=== PATIENT | male | born 1945 | race Caucasian/White ===

== ENCOUNTER 2020-03-10 08:17 | Inpatient (IN) | payer OTHER, MEDICAID, SELFPAY ==
[2020-03-10] VITALS (13 sets, daily range): BP systolic 93–131; BP diastolic 63–90; PULSE 66–106; RESP 16–26; TEMP 36.2–36.8; O2SAT 97–100; BMI 24.3
--- NOTE | ~2020-03-10 | CT_ITS ---
EXAMINATION: CT brain wo con DATE: 03/10/2020 09:12 INDICATION: Altered mental status. TECHNIQUE: Computed tomography (CT) of the head was performed without intravenous contrast. The mA wa s adjusted according to patient size. Iterative reconstruction technique was employed. The dose-lengt h product was 681.00 mGy-cm. COMPARISON: None FINDINGS: There are old infarcts in the cerebellum bilaterally. There is an old infarct involving rig ht temporal, parietal, and occipital lobes. There is an old infarct in posterior right frontal lobe. There are scattered areas of low attenuation in the cerebral white matter. There is cortical hypodens ity involving the left temporal and parietal lobes and left insula. There is an old infarct in the ri ght caudate nucleus. There is no intracranial hemorrhage or abnormal mass lesion. The ventricles are normal in size. There is mild mucosal thickening in the paranasal sinuses. There is an old healed rig ht zygomaticomaxillary complex fracture deformity. There is a trace right mastoid effusion. IMPRESSION: 1. Cortical hypodensity involving the left temporal and parietal lobes and left insula suspicious for acute infarct. 2. Old infarcts involving the cerebellum, right frontal, temporal, parietal, and occipital lobes, and right caudate nucleus. 3. Extensive nonspecific cerebral white matter disease, which likely represents chronic small vessel ischemic disease. Reviewed, dictated and finalized at location A. HNUT ICER IMPRESSION: 1. Cortical hypodensity involving the left temporal and parietal lobes and left insula suspicious for acute infarct. 2. Old infarcts involving the cerebellum, right frontal, temporal, parietal, an d occipital lobes, and right caudate nucleus. 3. Extensive nonspecific cerebral white matter disease, which likely represents chronic small vessel ischemic disease.
--- NOTE | ~2020-03-10 | XR_ITS ---
EXAMINATION: XR chest 1V DATE: 03/10/2020 09:16 INDICATION: Transient alteration of awareness. TECHNIQUE: A single frontal view of the chest was obtained. COMPARISON: Chest single view 04/15/2018 FINDINGS: There is volume loss in right hemithorax. There are airspace opacities in all right lung zo adam with a basilar predominance. There are mild airspace opacities at left lung base. There is a smal l right pleural effusion. No pneumothorax. The heart size is normal. There is a left chest wall pacer with leads in the right atrium and right ventricle. IMPRESSION: 1. Airspace opacities in right lung and at left lung base, consistent with atelectasis and scarring v ersus pneumonia. 2. Small right pleural effusion. Reviewed, dictated and finalized at location A. EILLANCE SUPERVISOR IMPRESSION: 1. Airspace opacities in right lung and at left lung base, consistent with atel ectasis and scarring versus pneumonia. 2. Small right pleural effusion.
--- NOTE | ~2020-03-10 | US_ITS ---
EXAMINATION: US carotid duplex BI DATE: 03/11/2020 09:49 INDICATION: Stroke with encephalopathy. Cerebral atherosclerosis. TECHNIQUE: Grayscale, color Doppler, and pulsed Doppler images of the cervical carotid arteries were obtained. The degree of vessel stenosis is placed in one of the following categories: normal, <50%, 5 0-69%, >=70% but less than near-occlusion, near-occlusion, or total occlusion. Note that percent sten osis relative to normal distal artery lumen diameter is indirectly measured from velocity measurement s as described by Joby, et al. Radiology 2003; 229:340-346. COMPARISON: None. FINDINGS: RIGHT: The right common carotid artery (CCA) peak systolic velocity (PSV) is 43 cm/s. The right internal car otid artery (ICA) PSV is 66 cm/s. The right ICA end-diastolic velocity (EDV) is 11 cm/s. The right IC A/CCA PSV ratio is 1.5. Grayscale and color Doppler images yield an estimate of <50% diameter reducti on from plaque in the ICA. The external carotid artery (ECA) PSV is 775 cm/s. There is antegrade flow in the right vertebral artery. LEFT: The left CCA PSV is 67 cm/s. The left ICA PSV is 67 cm/s. The left ICA EDV is 18 cm/s. The left ICA/C CA PSV ratio is 1.0. Grayscale and color Doppler images yield an estimate of <50% diameter reduction from plaque in the ICA. The ECA PSV is 58 cm/s. There is antegrade flow in the left vertebral artery. IMPRESSION: 1. <50% stenosis in the right internal carotid artery. 2. <50% stenosis in the left internal carotid artery. Reviewed, dictated and finalized at location A. S FITTER
--- NOTE | 2020-03-10 08:29 | ECG_ITS ---
Measurements Intervals [place] Rate: 88 P: NH: 0 QRS: 35 QRSD: 114 T: 0 QT: 337 QTc: 408 Interpretive Statements ATRIAL FIBRILLATION VENTRICULAR PREMATURE COMPLEX LOW QRS VOLTAGE IN LIMB LEADS INTRAVENTRICULAR CONDUCTION DELAY DELAYED PRECORDIAL R/S TRANSITION BORDERLINE ST-T WAVE ABNORMALITY- INF/LAT LEADS ABNORMAL ECG Electronically Signed On 03-10-2020 8:35:00 FRANCHISE CONSULTANT by Portillo Campbell D.O.
[2020-03-10 08:30] LABS: Glucose Point of Care 81 (65-105)
--- NOTE | 2020-03-10 08:51 | ED.NEUROSD ---
HPI - Neuro Symptoms/Deficit General Chief Complaint: Neuro Symptoms/Deficit Stated Complaint: Neuro symptoms Time Seen by Provider: 03/10/20 08:18 Source: EMS Mode of arrival: EMS Limitations: altered mental status History of Present Illness HPI Narrative: This patient is a 74 year old male with history of TIA, CAD, CHF, and dementia who presents for [facility] for evaluation of a possible CVa. Nursing staff reports they came onto shift it was noticed that patient has right side weakness and right facial droop. [facility] patient is normally able to talk but he is only able to moan today. They are unsure of his last known normal. EMS reports patient has left side deficit from a previous CVA. He was found around 7 am. Blood sugar was 103. Onset (ago): unknown Related Data Home Medications Medication Instructions Recorded Confirmed acetaminophen 650 mg PO Q4H PRN 03/10/20 03/10/20 aripiprazole 2 mg PO DAILY 03/10/20 03/10/20 carvedilol 3.125 mg PO BID 03/10/20 03/10/20 digoxin 125 mcg PO DAILY 03/10/20 03/10/20 docusate sodium 100 mg PO DAILY PRN 03/10/20 03/10/20 donepezil 10 mg PO HS 03/10/20 03/10/20 haloperidol [Haldol] 1 mg PO PRN PRN 03/10/20 03/10/20 haloperidol lactate [Haldol] 1 mg IM ONCE PRN 03/10/20 03/10/20 losartan 50 mg PO DAILY 03/10/20 03/10/20 memantine 10 mg PO BID 03/10/20 03/10/20 ondansetron HCl [Zofran] 4 mg PO Q6H PRN 03/10/20 03/10/20 pantoprazole 20 mg PO QAM 03/10/20 03/10/20 polysaccharide iron complex 150 mg PO DAILY 03/10/20 03/10/20 [Poly-Iron] Allergies Allergy/AdvReac Type Severity Reaction Status Date / Time acetaminophen [From Tylenol] Allergy Unknown Verified 03/10/20 10:36 cucumber Allergy Unknown Verified 03/10/20 10:36 Penicillins Allergy Unknown Verified 03/10/20 10:36 pineapple Allergy Unknown Verified 03/10/20 10:36 Review of Systems Review of Systems: ROS unobtainable: Yes unobtainable due to medical condition [facility] Past Medical History Medical History (Updated 03/10/20 @ 19:02 by Agueda Jean MD) Atrial fibrillation CAD (coronary artery disease) CHF (congestive heart failure) Systolic Dementia GERD (gastroesophageal reflux disease) Hypertension Mitral valve insufficiency TIA (transient ischemic attack) Surgical History Surgical History History of cardiac defibrillator placement Family History Family History (Updated 03/10/20 @ 17:22 by Charley Skelton NP) Unknown Unknown family medical history Social History Social History (Updated 03/10/20 @ 17:29 by Charley Skelton NP) Social History: He is from [place] [facility]. No emergency contacts listed and the patient is a DNR. His marital status is unknown. Smoking and drinking status unknown. Smoking status: Unknown if ever smoked Additional smoking assessment comments: Pt not verbal, lives at [facility]. Alcohol intake: former Substance use: never Gender identity (if verbalized by the patient): Male Spiritual care concerns: Yes ([facility]) Exam Const: General: ill appearing Limitations: altered mental status Other: patient moaning HENMT: Head: normocephalic and atraumatic Face and sinus: Flattened naso-labial fold present (right) Mouth: Yes dry mucous membranes Eyes: Pupils: Equal, round and reactive pupils present Other: gaze to left Resp: Effort & Inspection: normal respiratory effort and no retractions Auscultation: clear to auscultation bilaterally Cardio: Rate: regular rate Rhythm: regular rhythm Heart sounds: no murmurs GI: GI Palp: Yes Soft to palpation, No Tenderness to palpation present (GI) and No Guarding due to palpation present (GI) Auscultation: normal bowel sounds Neuro: Speech: Abnormal speech present complete aphasia (patient just moaning) Motor exam (neuro): Other motor observations present (unable to follow commands. appears to have
[2020-03-10 09:00] LABS: Alveolar/Arterial O2 Gradient 15.6 mmHg; Base Excess ABG -2.4 mEq/l (+/-2.0); Carboxyhemoglobin 0.3 % THb (0-2.0); Fractional Inspired Oxygen 21 %; HCO3 ABG 20.8 mEq/l (22.0-26.0); Methemoglobin ABG 0.2 %THb (0-1.5); Oxygen Content ABG 13.9 %vol (16.0-22.0); Oxygen Saturation ABG 97.8 % (95.0-100.0); Oxyhemoglobin 96.7 % THb (90.0-100.0); PCO2 ABG 30.2 mmHg (35.0-45.0); PO2 FiO2 Ratio Arterial Blood 4.67 %; Reduced Hemoglobin 2.8 %THb (0-5.0); Total Hemoglobin 10.1 g/dL (12.0-18.0); pH ABG 7.456 (7.350-7.450)
[2020-03-10 09:01] LABS: Modified Allen's Test Pass; Site Drawn RIGHT BRACHIAL
[2020-03-10 09:02] LABS: Device ROOM AIR
[2020-03-10 09:12] LABS: Basophils Percent Auto 0.5 % (0.2-1.2); Eosinophils Absolute Auto 0.3 K/mm3 (0-0.3); Eosinophils Percent Auto 3.1 % (0-4.4); Hematocrit 31.6 % (42.0-52.0); Hemoglobin 9.7 g/dL (14.0-18.0); Immature Granulocyte Absolute 0.04 K/mm3 (0.00-0.031); Immature Granulocyte Percent A 0.5 % (0-0.5); Lymphocytes Absolute Auto 0.87 K/mm3 (0.9-3.2); Lymphocytes Percent Auto 10.2 % (18.3-44.2); Mean Corpuscular HGB Conc 30.7 g/dl (32-36); Mean Corpuscular Hemoglobin 27.4 pg (26-34); Mean Corpuscular Volume 89.3 fl (80-100); Mean Platelet Volume 9.5 fl (7.4-10.4); Monocytes Absolute Auto 0.6 K/mm3 (0.1-0.6); Monocytes Percent Auto 7.1 % (2.6-8.5); Neutrophils Absolute Auto 6.7 K/mm3 (1.3-6.7); Neutrophils Percent Auto 78.6 % (45.5-73.1); Platelet Count Result 297 k/mm3 (150-375); Red Blood Count 3.54 M/mm3 (4.6-6.20); Red Cell Distribution Width 14.3 % (11.5-14.5); White Blood Count 8.5 K/mm3 (4.5-10.0)
[2020-03-10 09:21] LABS: INR 1.2; Prothrombin Time 15.5 Seconds (11.1-14.7)
[2020-03-10 09:22] LABS: Partial Thromboplastin Time 30.4 SECONDS (22.3-36.8)
[2020-03-10 09:26] LABS: Alanine Aminotransferase 10 U/L (4-50); Albumin Level 2.8 g/dL (3.5-5.1); Alkaline Phosphatase 105 U/L (38-126); Anion Gap 2 mmol/L (8-16); Aspartate Amino Transferase 18 U/L (17-59); Bilirubin,Total 0.4 mg/dL (0.2-1.3); Blood Urea Nitrogen 33 mg/dL (9-20); Calcium 8.2 mg/dL (8.4-10.2); Carbon Dioxide 27 mmol/L (22-30); Chloride 108 mmol/L (98-107); Estimated CRCL calculation 26 ml/min; Estimated Glomerular Filt Rate 27; Glucose 86 mg/dL (75-110); Potassium 4.5 mmol/L (3.4-5.0); Sodium 137 mmol/L (137-145)
[2020-03-10 09:44] LABS: Troponin I 0.052 ng/mL (0.000-0.034)
[2020-03-10 09:54] LABS: Add Urine Microscopic? YES; Appearance Urine Cloudy (Clear); Bacteria Urine Trace /hpf; Bilirubin Urine Negative (Negative); Color Urine Yellow (Yellow); Glucose Urine UA 1+ mg/dL (Negative); Ketones Urine Negative (Negative); Leukocyte Esterase Ur 3+ LEU/UL (Negative); Nitrate Urine Negative (Negative); Protein Urine 3+ mg/dL (Negative); Specific Grav Ur 1.014 (1.001-1.035); Squamous Epithelial Cell Urine Rare /hpf (Few); Urobilinogen Urine Negative mg/dL (<2.0); WBC Clumps Urine Present /HPF; WBC Urine >75 /hpf
[2020-03-10 09:55] LABS: Blood Urine Negative (Negative)
--- NOTE | 2020-03-10 10:21 | PC.NURSE ---
Called lab, Kiah, added on Digoxin [id number]
[2020-03-10 10:43] LABS: Digoxin 0.7 ng/mL (0.8-2.0)
--- NOTE | 2020-03-10 13:24 | ADMGEN ---
This patient, Haseeb Hagan, was admitted to Medical Room 343-01. Patient/family oriented to hospital policies and general routines including ID bracelet, bed and alarms, visiting hours, pain management, procedures, bathroom and other care routines, personal items, smoking policy, room service/diet, and visiting hours. Information on how to activate the Rapid Response Team has been discussed. Patient/Family are encouraged to report perceived risks to care and to ask questions if they do not understand what they are told or what they should do.
[2020-03-10] MEDS: FUROSEMIDE INJ 40 MG/4 ML VIAL 20 MG IV PUSH (16:31)
--- NOTE | 2020-03-10 17:00 | PM.IMHP ---
H&P: HPI History of Present Illness Date/Time: 03/10/20 17:00 Chief Complaint: Confusion Narrative: Haseeb Hagan is a 74 year old male who resides at [facility]. The patient has a history of dementia. Is reported that the patient just mimics what other people say but does not usually have a conversation. The patient was not mimicking others and does have a history of having systolic congestive heart failure the past. The patient has right-sided weakness and has a deviated gaze to the left upper area. [facility] that the patient right-sided weakness and right facial droop. The notices Friday came to the shift this morning. The patient has a left-sided deficit from previous CVA. The patient was found at 7:00 a.m. and his blood sugar was 103. Time of onset was unknown. His H&H is noted be 9.7 and 31.6. BUN 33 creatinine 2.4. His urine is positive for UTI. The patient has kidney disease unsure if it is acute or chronic. The patient was renally dose with Levaquin since he has a penicillin allergy. When I evaluated the patient his right arm was flaccid in his left arm was weak. The patient sounds congested and neb treatment suctioning and Lasix was ordered. The patient is NPO at this time for possibility of aspiration. He will need a swallow study. Patient is being admitted to inpatient on the date of service of 03/10/2020. The patient is a DNR. Review of Systems Review of Systems: All systems reviewed & are unremarkable except as noted in HPI and below Constitutional: Constitutional: Reports as per HPI and Reports no additional constitutional complaints Eyes: Eyes: Reports as per HPI and Reports no additional eye complaints ENT: Reports system reviewed and no additional complaints, except as documented and Reports Normal hearing present Cardiovascular: Cardiovascular: Reports no additional cardiovascular complaints Respiratory: Respiratory: Reports no additional respiratory complaints and Reports no additional respiratory complaints Gastrointestinal: Gastrointestinal: Reports as per HPI and Reports no additional gastrointestinal complaints Musculoskeletal: Musculoskeletal: Reports no additional musculoskeletal complaints Integumentary/Breasts: Skin/Breast: Reports system reviewed and no additional complaints, except as docu and Reports as per HPI Neurologic: Reports system reviewed and no additional complaints, except as documented, Reports as per HPI and Reports Normal hearing present Psychiatric: Psychiatric: Reports no additional psychiatric complaints and Reports as per HPI Endocrine: Endocrine: Reports no additional endocrine complaints Hematologic/Lymphatic: Hematologic/Lymphatic: Reports no additional hematologic/lymphatic complaints Allergic/Immunologic: Allergic/Immunologic: Reports no additional allergic/immunologic complaints [facility] Past Medical History Medical History (Updated 03/10/20 @ 17:44 by Charley Skelton NP) Atrial fibrillation CAD (coronary artery disease) CHF (congestive heart failure) Systolic Dementia GERD (gastroesophageal reflux disease) Hypertension Mitral valve insufficiency TIA (transient ischemic attack) Surgical History Surgical History History of cardiac defibrillator placement Family History Family History (Updated 03/10/20 @ 17:22 by Charley Skelton NP) Unknown Unknown family medical history Social History Social History (Updated 03/10/20 @ 17:29 by Charley Skelton NP) Social History: He is from [place] [facility]. No emergency contacts listed and the patient is a DNR. His marital status is unknown. Smoking and drinking status unknown. Smoking status: Unknown if ever smoked Additional smoking assessment comments: Pt not verbal, [facility]. Alcohol intake: former Substance use: never Gender identity (if verbalized by the patient): Male Spi
[2020-03-10] MEDS: SCOPOLAMINE 1.5 MG PATCH TRANSDERM (17:29)
[2020-03-10 18:09] LABS: Troponin I 0.055 ng/mL (0.000-0.034)
[2020-03-11] VITALS (11 sets, daily range): BP systolic 115–118; BP diastolic 72–77; PULSE 75–101; RESP 16–20; TEMP 36.5–36.6; O2SAT 95–98
--- NOTE | 2020-03-11 | ECHO_ITS ---
Patient Info Name: Haseeb Hagan Age: 74 years : 1945 Gender: Male Ht: 70 in Wt: 169 lbs BSA: 1.95 m2 HR: 94 bpm BP: 118 / 72 mmHg Heart Rhythm: Atrial Fibrillation Technical Quality: Good Exam Date: 03/11/2020 7:24 AM Exam Location: [facility] Pulmonary Exam Room: [facility] Patient Status: Inpatient Admit Date: 03/10/2020 Staff Ordering Physician: Sharon Cruz PA-C Project Manager/Design Manager: Stefania Lyle RDCS Attending Provider: Sharon Cruz PA-C Exam Type: CA echo doppler color flow Study Info Indications - HX/O afib cad chf AICD TIA Complete two-dimensional, color flow and Doppler transthoracic echocardiogram is performed. Summary 1. Complete two-dimensional, color flow and Doppler transthoracic echocardiogram is performed. 2. Left ventricular chamber dimension is moderately enlarged. 3. Left ventricular systolic function is severely reduced, estimated at 25-30%. 4. Right ventricular chamber dimension is normal. 5. Right ventricular systolic function is normal. 6. Linear artifact in right ventricle suggestive of catheter(s), pacemaker lead(s), or ICD lead(s). 7. Right atrial chamber dimension is severely enlarged. 8. Left atrial chamber dimension is severely enlarged. 9. Moderate pulmonary hypertension, estimated pulmonary arterial systolic pressure is 56 mmHg. 10. There is moderate to severe tricuspid valve regurgitation. 11. There is moderate to severe mitral valve regurgitation. Left Ventricle Left ventricular chamber dimension is moderately enlarged. Left ventricular systolic function is severely reduced, estimated at 25-30%. There is no increased left ventricular wall thickness. The left ventricular diastolic function is indeterminate. Right Ventricle Right ventricular chamber dimension is normal. Right ventricular systolic function is normal. Linear artifact in right ventricle suggestive of catheter(s), pacemaker lead(s), or ICD lead(s). Left Atria Left atrial chamber dimension is severely enlarged. Right Atria Right atrial chamber dimension is severely enlarged. Linear artifact in the right atrium suggestive of catheter(s), pacemaker lead(s), or ICD lead(s). Aortic Valve The aortic valve is not well visualized. There is no aortic valve stenosis. There is no aortic valve regurgitation. Pulmonic Valve The pulmonic valve is not well visualized. Mitral Valve The mitral valve has thickened leaflets. There is moderate to severe mitral valve regurgitation. The mitral valve annulus is severely calcified. Tricuspid Valve The tricuspid valve leaflets are normal. There is moderate to severe tricuspid valve regurgitation. Moderate pulmonary hypertension, estimated pulmonary arterial systolic pressure is 56 mmHg. Pericardium/Pleural The pericardium appears normal. There is trivial pericardial effusion. Aorta The aortic root size at the sinus of Valsalva is normal. There is mild-moderate aortic atherosclerosis. Left Ventricular Outflow Tract Name Value Normal LVOT 2D LVOT Diameter 2.1 cm LVOT Doppler LVOT Peak Gradient 4 mmHg LV
[2020-03-11 05:56] LABS: Basophils Percent Auto 0.3 % (0.2-1.2); Eosinophils Percent Auto 0.3 % (0-4.4); Hematocrit 34.6 % (42.0-52.0); Hemoglobin 10.5 g/dL (14.0-18.0); Immature Granulocyte Absolute 0.05 K/mm3 (0.00-0.031); Immature Granulocyte Percent A 0.4 % (0-0.5); Lymphocytes Absolute Auto 0.74 K/mm3 (0.9-3.2); Lymphocytes Percent Auto 5.6 % (18.3-44.2); Mean Corpuscular HGB Conc 30.3 g/dl (32-36); Mean Corpuscular Hemoglobin 27.2 pg (26-34); Mean Corpuscular Volume 89.6 fl (80-100); Mean Platelet Volume 9.7 fl (7.4-10.4); Monocytes Absolute Auto 0.8 K/mm3 (0.1-0.6); Monocytes Percent Auto 6.3 % (2.6-8.5); Neutrophils Absolute Auto 11.6 K/mm3 (1.3-6.7); Neutrophils Percent Auto 87.1 % (45.5-73.1); Platelet Count Result 305 k/mm3 (150-375); Red Blood Count 3.86 M/mm3 (4.6-6.20); Red Cell Distribution Width 14.5 % (11.5-14.5); White Blood Count 13.3 K/mm3 (4.5-10.0)
[2020-03-11 06:06] LABS: Lactic Acid Reflex 1.7 mmol/L (0.7-2.1)
[2020-03-11 06:12] LABS: Alanine Aminotransferase 10 U/L (4-50); Albumin Level 3.3 g/dL (3.5-5.1); Alkaline Phosphatase 123 U/L (38-126); Anion Gap 7 mmol/L (8-16); Aspartate Amino Transferase 21 U/L (17-59); Bilirubin,Total 0.5 mg/dL (0.2-1.3); Blood Urea Nitrogen 32 mg/dL (9-20); CRP 6.1 mg/dL (<1.0); Carbon Dioxide 23 mmol/L (22-30); Chloride 108 mmol/L (98-107); Estimated CRCL calculation 27 ml/min; Estimated Glomerular Filt Rate 28; Glucose 81 mg/dL (75-110); Lactate Dehydrogenase 788 U/L (313-618); Potassium 4.9 mmol/L (3.4-5.0); Sodium 138 mmol/L (137-145)
[2020-03-11] MEDS: ASPIRIN 600 MG SUPPOSITORY RECTAL (08:13)
[2020-03-11] MEDS: DIGOXIN INJ 250 MCG/ML 2 ML AMP (*BKC) 125 MCG IV PUSH (08:13)
--- NOTE | 2020-03-11 09:30 | PM.CNCAR ---
Assessment and Plan Assessment and plan (1) Atrial fibrillation: Code(s): I48.91 - Unspecified atrial fibrillation Status: Chronic Assessment and Plan: Chronicity unknown. Need to determine ICD window dresser and interrogate device which will clarify this issue. However, patient's candidacy for systemic anticoagulation questionable as he was not on aspirin or anticoagulation previously with documentation of prior bilateral strokes on CT head. Need to clarify this information. Furthermore, need specific recommendation from Neurology with regards to timing for initiation of anticoagulation if deemed appropriate. Otherwise, patient very high risk for recurrent stroke and concern for high risk for bleeding complications but difficult to clarify given current mental status and available records. Need to obtain records from patient's primary counselor/art therapist as an outpatient. Patient is at high risk for complications including falls, bleeding especially recurrent stroke. Check digoxin level. Given patient's renal failure, advanced age dose adjustment or discontinuation may be warranted. Recommendations to follow in this regard. (2) CVA (cerebral vascular accident): Code(s): I63.9 - Cerebral infarction, unspecified Status: Acute Assessment and Plan: Neurology consultation advised. Evidence of acute stroke as well as multiple old cerebral infarctions. Hospice or comfort measures quite appropriate in this unfortunate and very complicated and debilitated gentleman. (3) Elevated troponin: Code(s): R77.8 - Other specified abnormalities of plasma proteins Status: Acute Assessment and Plan: Flat, not associated with ischemic EKG changes or anginal symptoms. This appears consistent with a non ID troponin elevations secondary to renal failure and possibly atrial fibrillation with reported history of cardiomyopathy. 2D echo pending. Will review with recommendation to follow. At a minimum, I would recommend aspirin given stroke and reported history, however, systemic anticoagulation if deemed appropriate would be best management in which case aspirin may be after the 1st month. (4) Cardiomyopathy: Code(s): I42.9 - Cardiomyopathy, unspecified Status: Acute Assessment and Plan: Echo pending. Will review when available. Patient does not appear to be in decompensated heart failure at this time. Continue carvedilol, ARB. He did not appear to be on diuretic therapy as an outpatient per available medication list. Appropriate med management for support. (5) ICD (implantable cardioverter-defibrillator) in place: Code(s): Z95.810 - Presence of automatic (implantable) cardiac defibrillator Status: Acute Assessment and Plan: As above, interrogate device window dresser unknown. Need to review prior records for clarification. 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 (7) Hypertension: Code(s): I10 - Essential (primary) hypertension Status: Chronic Assessment and Plan: Avoid hypotension particularly in setting acute CVA. Would favor permissive hypertension. (8) UTI (urinary tract infection): Code(s): N39.0 - Urinary tract infection, site not specified Status: Acute Assessment and Plan: ABx and management per primary service. History of Present Illness History of Present Illness Consult date/time: Date of service: 03/11/20 09:30 Cardiology consultation at the request of [place] [facility] Sharon Cruz for our opinion regarding atrial fibrillation and stroke. Requesting physician: Sharon Cruz PA-C Consult reason: atrial fibrillation Reason For Visit: acute cva Narrative: Patient is a 74-year-old male who is a resident of [facility]
--- NOTE | 2020-03-11 10:12 | PCPTNOTE ---
Attempted PT evaluation at 0940. Unable to wake patient. Experienced some reflexive responses to palmar and plantar stimulation, but no voluntary movement. Will attempt to work with patient again when he is awake. Called [facility] and spoke with Jody about PLOF. She states that prior to this event he was a terry lift from bed, wheelchair dependent and for several months has not been able to self propel wheelchair. He was previously able to self feed some finger foods and sometimes a cup to mouth for fluids.
--- NOTE | 2020-03-11 11:15 | PC.NURSE ---
1100 spoke with nurse, Alejandro Whittington, at [facility]. Nurse Alejandro Whittington voiced that there is no documentation of type of allergic response the patient has if he gets penicillin. 1113 spoke with patient s daughter, Brii on the telephone and she voiced that she does not know the allergic response the patient has if he gets penicillin.
[2020-03-11 12:14] LABS: Digoxin 1.4 ng/mL (0.8-2.0)
--- NOTE | 2020-03-11 13:21 | PCSTNOTE ---
Please refer to the Bedside Swallow Evaluation in the EMR. Please note, silent aspiration cannot be ruled out at bedside.
--- NOTE | 2020-03-11 15:46 | PM.DS ---
DS: Admitting Diagnosis Admitting Diagnosis Admitting Diagnosis: As above. DS: Discharge Diagnosis Discharge Diagnosis (1) CVA (cerebral vascular accident): Code(s): I63.9 - Cerebral infarction, unspecified Status: Acute Assessment and Plan: Discharge Summary (Date of service 03/11/20): Mr. Hagan is a 74 y.o. male who resides at [facility] with PMH significant for dementia, prior CVA with residual left sided weakness, hx of traumatic brain injury, CAD, cardiomyopathy, CHF, ICD who presented to the emergency department 03/10/20 via EMS from [facility] for the evaluation of new right-sided weakness, right facial droop, and worsening confusion. Staff at the [facility] noted the right-sided deficits at shift change the morning of 03/10/20 and time of onset was unknown. CT brain wo contrast in the emergency department demonstrated acute CVA affecting the left temporal lobe, parietal lobes, left insula suspicious for acute infarct as well as old infarcts involving the cerebellum, right frontal, temporal, parietal, and occipital, and right caudate nucleus. TPA was not given since time of onset was not known. He was admitted to the hospitalist service and neurology was consulted. MRI was ordered but could not be performed due to pacemaker presence. The acute CVA caused significant deficits and the patient was non-verbal and unable to follow commands of participate in bedside swallow evaluation. I discussed the patient's overall condition and prognosis with his daughter and guardian, Brunilda Alberts, who elected to proceed with hospice care given his disabling deficits and overall condition following CVA. He was treated with IV levaquin given urinalysis but was unable to take oral medications at discharge and his guardian, Brunilda Alberts, elected not to proceed with further antibiotic therapy. He was discharged to [facility] with [facility] on 03/[facility]. (2) Hypertension: Code(s): I10 - Essential (primary) hypertension Status: Chronic (3) Atrial fibrillation: Code(s): I48.91 - Unspecified atrial fibrillation Status: Chronic (4) UTI (urinary tract infection): Code(s): N39.0 - Urinary tract infection, site not specified Status: Acute (5) Renal failure: Code(s): N19 - Unspecified kidney failure Status: Acute (6) Elevated troponin: Code(s): R77.8 - Other specified abnormalities of plasma proteins Status: Acute (7) ICD (implantable cardioverter-defibrillator) in place: Code(s): Z95.810 - Presence of automatic (implantable) cardiac defibrillator Status: Acute (8) Cardiomyopathy: Code(s): I42.9 - Cardiomyopathy, unspecified Status: Acute DS: Summary Hospital Course Hospital Course: Acute CVA Time Spent with Patient Time attestation: Total time spent providing and/or coordinating discharge services: 45 minutes Exam Narrative: Exam Narrative: Vitals at presentation: Temp Pulse Resp BP Pulse Ox 98.2 F 94 24 H 119/90 99 03/10/20 08:16 03/10/20 08:16 03/10/20 08:16 03/10/20 08:16 03/10/20 08:16 Vitals at discharge: Temp Pulse Resp BP Pulse Ox 97.7 F 87 20 115/77 98 03/11/20 14:00 03/11/20 16:00 03/11/20 15:05 03/11/20 14:00 03/11/20 14:00 General: Chronically ill-appearing 74 y.o. male lying semi-recumbent in bed. He is unresponsive to verbal stimuli. HEENMT: Normocephalic and atraumatic. He clenches eyes closed when I try to open them and cannot further assess. Oral mucosa dry. Neck: Supple without lymphadenopathy or masses. Cardiac: Irregularly irregular rhythm. Lungs: Lungs are clear to auscultation anteriorly. Wet sounds
--- NOTE | 2020-03-11 18:30 | PC.NURSE ---
[id number] phoned report regarding patient going to [facility] via RN Minerva Fitzgerald Acknowledged understanding. Phoned [place] ambulance to transport patient there.
--- NOTE | 2020-03-11 19:04 | PC.NURSE ---
[id number] phoned hospice nurse Nicolasa that the ambulance is here to take patient to [facility]. Acknowledged understanding. 1901 phoned patient s daughter, Brii and notified her that the ambulance is here to take patient to [facility]. Acknowledged understanding.
== END 2020-03-11 19:05 | disposition hospice, home (50) | DRG 65 ==
LOC: ANHED 11:40 → ANH3MED 12:50
PROVIDERS: Internal Medicine Cardiovascular Disease; Nurse Practitioner; Admitting Provider Family Medicine; Emergency Provider General Practice; PCP Internal Medicine; Visit Provider Physician Assistant
DX: I63.9 Cerebral infarction, unspecified (principal); G81.91 Hemiplegia, unspecified affecting right dominant side; I48.20 Chronic atrial fibrillation, unspecified; I50.22 Chronic systolic (congestive) heart failure; I13.0 Hypertensive heart and chronic kidney disease with heart failure and stage 1 through stage 4 chronic kidney disease, or unspecified chronic kidney disease; N18.4 Chronic kidney disease, stage 4 (severe); N39.0 Urinary tract infection, site not specified; I42.9 Cardiomyopathy, unspecified; I69.354 Hemiplegia and hemiparesis following cerebral infarction affecting left non-dominant side; N19 Unspecified kidney failure; I69.398 Other sequelae of cerebral infarction; I25.10 Atherosclerotic heart disease of native coronary artery without angina pectoris; F03.90 Unspecified dementia, unspecified severity, without behavioral disturbance, psychotic disturbance, mood disturbance, and anxiety; R29.810 Facial weakness; K21.9 Gastro-esophageal reflux disease without esophagitis; I34.0 Nonrheumatic mitral (valve) insufficiency; Z66 Do not resuscitate; Z95.810 Presence of automatic (implantable) cardiac defibrillator
CPT/HCPCS: 36415; 36600; 51702; 70450; 71045; 80053; 80162; 81001; 82375; 82805; 82948; 83050; 83605; 83615; 83735; 84443; 84484; 85025; 85610; 85730; 86140; 87040; 87077; 87086; 87088; 92610; 93005; 93306; 93880; 94640; 96374; 97162; 97165; 99285; A9270; J1160; J1940; J1956